=== PATIENT | female | born 1975 | race Caucasian/White ===

== ENCOUNTER 2019-11-20 09:22 | Inpatient (IN) ==
[2019-11-20] MEDS ORDERED: Vancomycin 2,000 MG/520 ML IV.SOLN IVPB ONE (10:25)
[2019-11-20 10:35] LABS: Basophils % 0.3 %; Eosinophils # 0.2 K/mcL (0.0-0.6); Eosinophils % 2.8 %; Hematocrit 36.1 % (35.3-44.9); Hemoglobin 10.9 g/dL (11.5-15.4); Immature Granulocytes % 1.4 % (0-4); Lymphocytes # 1.4 K/mcL (0.6-4.6); Lymphocytes % 19.5 %; Mean Corpuscular HGB Conc 30.2 g/dL (31.6-35.5); Mean Corpuscular Hemoglobin 25.5 pg (28.0-33.3); Mean Corpuscular Volume 84.5 fL (83.0-100.0); Mean Platelet Volume 10.1 fL (9.4-12.4); Monocytes # 0.5 K/mcL (0.0-1.3); Monocytes % 7.1 %; Platelet Count 315 K/mcL (140-400); Red Blood Count 4.27 M/mcL (3.82-4.97); Red Cell Distribution Width 15.6 % (11.5-14.5); Segmented Neutrophils % 68.9 %; White Blood Count 7.2 K/mcL (4.3-11.1)
[2019-11-20 10:57] LABS: BUN/Creatinine Ratio 11 (6-26); Blood Urea Nitrogen 6 mg/dL (6-20); Calcium 8.3 mg/dL (8.6-10.3); Carbon Dioxide 23 mEq/L (23-29); Chloride 103 mEq/L (98-107); Glucose 149 mg/dL (70-105); Osmolality,Calculated 280 (280-300); Potassium 3.7 mEq/L (3.5-5.1); Sodium 135 mEq/L (136-145); eGFR For African Americans > 60 (> 60); eGFR For Non-African Americans > 60 (> 60)
[2019-11-20] MEDS ORDERED: *HR* Promethazine 25 MG/ML VIAL IVP PRN (11:11)
[2019-11-20] MEDS ORDERED: Ringers Solution, Lactated 1,000 ML IVC ONE (11:11)
[2019-11-20] MEDS ORDERED: *HR* HYDROcodone/Acet 5/325 mg TABLET PO PRN (11:17)
[2019-11-20 11:55] LABS: INR 1.4
[2019-11-20] MEDS ORDERED: Dextrose Gel 15 GM/37.5 ML TUBE PO PRN ×2 (12:00)
[2019-11-20] MEDS: Insulin LISPRO 300 UNITS/3 ML VIAL SQ SCH ×4 (12:40→20:04)
[2019-11-20] MEDS: CeFAZolin 2 GM/120 ML BAG IVPB SCH ×2 (16:46→23:29)
[2019-11-20] MEDS: Gabapentin 300 MG CAPSULE PO SCH ×2 (16:47→20:00)
[2019-11-20] MEDS: DilTIAZem CD (24hr) 240 MG CAP.ER.24H PO SCH (20:00)
[2019-11-20] MEDS: Celecoxib 200 MG CAPSULE PO SCH (20:00)
[2019-11-21] MEDS: hydroCHLOROthiazide 25 MG TABLET PO SCH (08:48)
[2019-11-21] MEDS: Gabapentin 300 MG CAPSULE PO SCH ×3 (08:48→20:55)
[2019-11-21] MEDS: Insulin LISPRO 300 UNITS/3 ML VIAL SQ SCH ×4 (08:48→21:01)
[2019-11-21] MEDS: CeFAZolin 2 GM/120 ML BAG IVPB SCH ×2 (08:48→15:58)
[2019-11-21] MEDS: Celecoxib 200 MG CAPSULE PO SCH ×2 (08:48→20:55)
[2019-11-21 09:10] LABS: Hematocrit 37.1 % (35.3-44.9); Hemoglobin 11.1 g/dL (11.5-15.4); Mean Corpuscular HGB Conc 29.9 g/dL (31.6-35.5); Mean Corpuscular Hemoglobin 25.5 pg (28.0-33.3); Mean Corpuscular Volume 85.3 fL (83.0-100.0); Mean Platelet Volume 10.7 fL (9.4-12.4); Platelet Count 265 K/mcL (140-400); Red Blood Count 4.35 M/mcL (3.82-4.97); Red Cell Distribution Width 15.6 % (11.5-14.5); White Blood Count 6.6 K/mcL (4.3-11.1)
[2019-11-21 09:12] LABS: INR 1.3; Prothrombin Time 15.2 Seconds (9.4-12.1)
[2019-11-21 09:24] LABS: BUN/Creatinine Ratio 14 (6-26); Blood Urea Nitrogen 7 mg/dL (6-20); Calcium 8.7 mg/dL (8.6-10.3); Carbon Dioxide 22 mEq/L (23-29); Chloride 104 mEq/L (98-107); Glucose 151 mg/dL (70-105); Osmolality,Calculated 281 (280-300); Potassium 4.2 mEq/L (3.5-5.1); Sodium 135 mEq/L (136-145); eGFR For African Americans > 60 (> 60); eGFR For Non-African Americans > 60 (> 60)
[2019-11-21] MEDS: Loratadine 10 MG TABLET PO SCH (15:59)
[2019-11-21] MEDS: DilTIAZem CD (24hr) 240 MG CAP.ER.24H PO SCH (20:55)
[2019-11-21] MEDS: Nystatin POWDER 30 GM BOTTLE TP SCH (20:57)
[2019-11-21] MEDS: *HR* Heparin 5,000 UNIT/ML VIAL SQ SCH (20:58)
[2019-11-22] MEDS: CeFAZolin 2 GM/120 ML BAG IVPB SCH ×4 (00:42→23:29)
[2019-11-22] MEDS: *HR* Heparin 5,000 UNIT/ML VIAL SQ SCH ×3 (06:02→21:54)
[2019-11-22 07:42] LABS: Basophils % 0.5 %; Eosinophils # 0.2 K/mcL (0.0-0.6); Eosinophils % 3.2 %; Hematocrit 36.9 % (35.3-44.9); Hemoglobin 11.3 g/dL (11.5-15.4); Immature Granulocytes % 0.6 % (0-4); Lymphocytes # 1.6 K/mcL (0.6-4.6); Lymphocytes % 23.9 %; Mean Corpuscular HGB Conc 30.6 g/dL (31.6-35.5); Mean Corpuscular Hemoglobin 26.2 pg (28.0-33.3); Mean Corpuscular Volume 85.4 fL (83.0-100.0); Mean Platelet Volume 9.9 fL (9.4-12.4); Monocytes # 0.5 K/mcL (0.0-1.3); Monocytes % 7.6 %; Neutrophils # 4.3 K/mcL (1.6-8.9); Platelet Count 321 K/mcL (140-400); Red Blood Count 4.32 M/mcL (3.82-4.97); Red Cell Distribution Width 15.5 % (11.5-14.5); Segmented Neutrophils % 64.2 %; White Blood Count 6.6 K/mcL (4.3-11.1)
[2019-11-22 08:03] LABS: BUN/Creatinine Ratio 21 (6-26); Blood Urea Nitrogen 10 mg/dL (6-20); Calcium 8.6 mg/dL (8.6-10.3); Carbon Dioxide 26 mEq/L (23-29); Chloride 104 mEq/L (98-107); Glucose 151 mg/dL (70-105); Magnesium 2.2 mg/dL (1.6-2.6); Osmolality,Calculated 284 (280-300); Potassium 4.4 mEq/L (3.5-5.1); Sodium 136 mEq/L (136-145); eGFR For African Americans > 60 (> 60); eGFR For Non-African Americans > 60 (> 60)
[2019-11-22 08:07] LABS: Estimated Average Glucose 166 mg/dl; Hemoglobin A1C 7.4 %
[2019-11-22] MEDS: Gabapentin 300 MG CAPSULE PO SCH ×3 (08:16→20:09)
[2019-11-22] MEDS: Insulin LISPRO 300 UNITS/3 ML VIAL SQ SCH ×4 (08:16→21:22)
[2019-11-22] MEDS: Loratadine 10 MG TABLET PO SCH (08:16)
[2019-11-22] MEDS: Celecoxib 200 MG CAPSULE PO SCH ×2 (08:16→20:09)
[2019-11-22] MEDS: hydroCHLOROthiazide 25 MG TABLET PO SCH (08:16)
[2019-11-22] MEDS: Nystatin POWDER 30 GM BOTTLE TP SCH ×2 (12:23→20:14)
[2019-11-22] MEDS: DilTIAZem CD (24hr) 240 MG CAP.ER.24H PO SCH (20:09)
[2019-11-23 02:37] LABS: Basophils % 0.3 %; Eosinophils # 0.3 K/mcL (0.0-0.6); Eosinophils % 3.8 %; Hematocrit 36.2 % (35.3-44.9); Hemoglobin 11.3 g/dL (11.5-15.4); Immature Granulocytes % 1.1 % (0-4); Lymphocytes # 2.2 K/mcL (0.6-4.6); Lymphocytes % 33.7 %; Mean Corpuscular HGB Conc 31.2 g/dL (31.6-35.5); Mean Corpuscular Hemoglobin 26.2 pg (28.0-33.3); Mean Corpuscular Volume 83.8 fL (83.0-100.0); Monocytes # 0.5 K/mcL (0.0-1.3); Monocytes % 7.6 %; Neutrophils # 3.5 K/mcL (1.6-8.9); Platelet Count 326 K/mcL (140-400); Red Blood Count 4.32 M/mcL (3.82-4.97); Red Cell Distribution Width 15.2 % (11.5-14.5); Segmented Neutrophils % 53.5 %; White Blood Count 6.6 K/mcL (4.3-11.1)
[2019-11-23 02:52] LABS: BUN/Creatinine Ratio 24 (6-26); Blood Urea Nitrogen 13 mg/dL (6-20); Calcium 9.1 mg/dL (8.6-10.3); Carbon Dioxide 24 mEq/L (23-29); Chloride 102 mEq/L (98-107); Glucose 119 mg/dL (70-105); Magnesium 2.2 mg/dL (1.6-2.6); Osmolality,Calculated 283 (280-300); Potassium 4.5 mEq/L (3.5-5.1); Sodium 136 mEq/L (136-145); eGFR For African Americans > 60 (> 60); eGFR For Non-African Americans > 60 (> 60)
[2019-11-23] MEDS: Loratadine 10 MG TABLET PO SCH (07:49)
[2019-11-23] MEDS: Gabapentin 300 MG CAPSULE PO SCH ×3 (07:49→21:29)
[2019-11-23] MEDS: Celecoxib 200 MG CAPSULE PO SCH ×2 (07:49→21:30)
[2019-11-23] MEDS: hydroCHLOROthiazide 25 MG TABLET PO SCH (07:49)
[2019-11-23] MEDS: *HR* Heparin 5,000 UNIT/ML VIAL SQ SCH ×2 (07:50→13:15)
[2019-11-23] MEDS: Insulin LISPRO 300 UNITS/3 ML VIAL SQ SCH ×4 (07:52→21:30)
[2019-11-23] MEDS: CeFAZolin 2 GM/120 ML BAG IVPB SCH ×2 (08:33→16:05)
[2019-11-23] MEDS: Nystatin POWDER 30 GM BOTTLE TP SCH (12:08)
[2019-11-23] MEDS ORDERED: D5% in Water 1,000 ML IVC PRN (13:22)
[2019-11-23] MEDS ORDERED: *HR* Dextrose 50 % in Water (Vial) 50 ML VIAL IVP PRN (13:22)
[2019-11-23] MEDS ORDERED: 0.9 % Sodium Chloride 500 ML IVC ONE (13:30)
[2019-11-23] MEDS ORDERED: *HR* Midazolam HCl 2 MG/2 ML VIAL IVP PRN (13:30)
[2019-11-23] MEDS ORDERED: Lidocaine Viscous Oral Soln 15 ML SOLUTION MM PRN (13:30)
[2019-11-23] MEDS ORDERED: *HR* Midazolam HCl 5 MG/5 ML VIAL IVP ONE (13:40)
[2019-11-23] MEDS: *HR* FentaNYL (PF) 100 MCG/2 ML VIAL IVP PRN ×2 (13:50→13:55)
[2019-11-23] MEDS: *HR* Midazolam HCl 5 MG/5 ML VIAL IVP ONE ×2 (13:55→14:05)
[2019-11-23] MEDS: DilTIAZem CD (24hr) 240 MG CAP.ER.24H PO SCH (21:29)
[2019-11-23] MEDS: Apixaban 5 MG TABLET PO SCH (21:30)
[2019-11-24] MEDS: CeFAZolin 2 GM/120 ML BAG IVPB SCH ×2 (00:52→08:09)
[2019-11-24] MEDS: Nystatin POWDER 30 GM BOTTLE TP SCH ×2 (00:53→09:47)
[2019-11-24] MEDS: Insulin LISPRO 300 UNITS/3 ML VIAL SQ SCH ×2 (07:59→11:16)
[2019-11-24] MEDS: Apixaban 5 MG TABLET PO SCH (08:12)
[2019-11-24] MEDS: Gabapentin 300 MG CAPSULE PO SCH (08:13)
[2019-11-24] MEDS: hydroCHLOROthiazide 25 MG TABLET PO SCH (08:13)
[2019-11-24] MEDS: Loratadine 10 MG TABLET PO SCH (08:13)
[2019-11-24] MEDS: Celecoxib 200 MG CAPSULE PO SCH (08:13)
[2019-11-24 10:41] VITALS: BP 126/86
== END 2019-11-24 14:27 | disposition home health service (06) | DRG 711 ==
LOC: 3ANU 09:22 → EMEROOARM 09:22 → 3ANU 11:49 → SUATTDRO 17:19
PROVIDERS: ADMIT Internal Medicine; ATTEND Pharmacist